=== PATIENT | male | born 1995 | race Caucasian/White ===

== ENCOUNTER 2017-01-04 18:14 | Emergency (ER) | payer MEDICAID ==
[2017-01-04 18:31] VITALS: BP 159/96; PULSE 87; TEMP 98.6; BMI 21.8
--- NOTE | 2017-01-04 18:37 | EDPRACDOC ---
- General Information Stated Complaint: DENTAL PAIN LOWER JAW & ? ABSCESS LT LOWER JAW Time Seen by Provider: 01/04/17 18:29 Information Source: Patient Mode Of Arrival: Car Home Medications: Home Medications Hydrocodone Bit/Acetaminophen [Hydrocodon-Acetaminophen 5-325] 1 tab PO Q6 PRN # 7 tab 10/15/16 Amoxicillin Trihydrate [Amoxicillin] 500 mg PO TID #30 tab 01/04/17 Meloxicam [Mobic] 7.5 mg PO BID #20 tab 01/04/17 Allergies/Adverse Reactions: Allergies Allergy/AdvReac Type Severity Reaction Status Date / Time tramadol Allergy Severe See Verified 10/15/16 18:26 Comments acetaminophen [From Tylenol] Allergy Nausea/Vomi Verified 10/15/16 18:27 ting ketorolac tromethamine Allergy Difficulty Verified 10/15/16 18:26 [From Toradol] Breathing - History of Present Illness Onset: LAST NIGHT HPI: PT PRESENTS TODAY WITH PAINFUL MASS TO TOOTH #20. NO FEVER. Reported Tooth Problem: 20 Pain Severity: Reports: Moderate Relevant History of: Reports: None Modifying Factors: improves with: Cold, Chewing Associated Signs and Symptoms: Reports: None ED Past Medical History - History Reviewed Yes Nurses notes reviewed and agree except as marked - Patient Medical History Respiratory History: Reports: Asthma - Social Medical History Smoking Status: Heavy tobacco smoker (5 or more cigarettes/day or daily pipe/ cigar) EDM Review of Systems - Review of Systems ROS Negative Except as Marked: Yes All systems reviewed and were negative except as marked Constitutional: No Symptoms Reported Eyes: No Symptoms Reported Ears: No Symptoms Reported Throat: No Symptoms Reported Nose: No Symptoms Reported Mouth: Tooth Pain Respiratory: No Symptoms Reported Cardiovascular: No Symptoms Reported Gastrointestinal: No Symptoms Reported Neurological: No Symptoms Reported Musculoskeletal: No Symptoms Reported Integumentary: No Symptoms Reported - Physical Exam Constitutional: Alert (Awake), No apparent distress Oriented to: Time, Person, Place Last recorded Vital Signs: Last Vital Signs Temp 98.6 F 01/04/17 18:29 Pulse 87 01/04/17 18:29 Resp 18 01/04/17 18:29 BP 159/96 01/04/17 18:29 Pulse Ox 97 01/04/17 18:29 Oxygen Pulse Oxygen Saturation 97 O2 Device Room Air Oxygen Flow Rate Fraction of Inspired Oxygen ( FIO2) - HEENT Head: Swelling (NOTED DENTAL ABSCESS TO TOOTH #20; NO POINTING) Eye Exam: Normal Oropharynx: Normal Tympanic Membrane: Normal ENT EAC: Normal Nose: No Symptoms Reported Neck: Normal, Denies Pain, Midline - Respiratory/Cardiovascular Respiratory: Normal - CTA Cardiovascular: Normal - GI Palpation: Normal Tenderness: Non tender - Musculoskeletal Back: Normal Extremities: Normal - Integumentary Skin: Normal Lymphatics: Normal - Neurologic Cerebellar: Normal Mood Description: Normal Thought: Coherent Perception: Normal ED Tooth Problem Exam - HEENT Face: Swelling Teeth: Left: Molar-2 Lower (ABSCESS; NO POINTING) Gingiva: Tender, Swelling Palate: Normal Mouth Range of Motion: Normal Sinuses: Normal Oropharynx: Normal Neck: Normal, Denies Pain, Midline Decision Time to Discharge: 18:36 - Departure Disposition: Home Condition: Good Final Diagnosis: Dental abscess (peridontal) Instructions: Dental Abscess (ED) Education/Counseling Given To: Patient Education/Counseling Given Regarding: Diagnosis, Treatment, Follow Up Referrals: None,No Provider [Primary Care Provider] - One Week [facility] [NonStaff] - One Week Prescriptions: New Amoxicillin Trihydrate [Amoxicillin] 500 mg PO TID #30 tab Meloxicam [Mobic] 7.5 mg PO BID #20 tab No Action Hydrocodone Bit/Acetaminophen [Hydrocodon-Acetaminophen 5-325] 1 tab PO Q6 PRN #7 tab PRN Reason: Pain Additional Instructions: FOLLOW UP WITH DENTISTRY ZACK PERDOMO [phone]
== END 2017-01-04 18:46 | disposition home or self-care (01) ==
LOC: EDMC 18:14
DX: K04.7 Periapical abscess without sinus (principal)
CPT/HCPCS: 99282